=== PATIENT | female | born 1985 | race Caucasian/White ===

== ENCOUNTER → 2017-08-20 | Outpatient (CLI) | payer OTHER ==
[~2017-08-20] MED LIST: ALDOMET500 MG PO; ASPIR 8181 MG PO; PRENATAL CAPLE1 EACH PO
== END | disposition home or self-care (01) ==
LOC: TOM 07:30
DX: R10.13 Epigastric pain (principal); E26.09 Other primary hyperaldosteronism; I11.9 Hypertensive heart disease without heart failure